=== PATIENT | male | born 1975 | race Caucasian/White ===

== ENCOUNTER 2017-10-15 17:49 | Inpatient (IN) | payer OTHER ==
[~2017-10-15] VITALS: Ht 182.9 cm; Wt 49.4 kg
[~2017-10-15 17:49] MED LIST: ANTIBIOTIC O500 U/GM TP; AUGMENTIN 875875 MG PO; BACTRIM DS 8001 TA1 PO; KEFLEX500 M1 PO; KEFLEX500 MG PO; KETOCONAZOLE2% TP; MOTRIN800 MG PO; NAPROSYN500 MG PO; NKHM; NORCO 5-325 TA1 EACH PO; VICODIN 5/500 505 MG PO; VOLTAREN50 M1 PO; ZOFRAN4 MG PO
[2017-10-15 17:51] VITALS: BP 136/94
[2017-10-15 18:16] VITALS: BP 143/102
[2017-10-15 18:17] LABS: BASO % 0.6 % (0.0-1.0); EOS # 0.1 10*3/uL (0.0-0.4); EOS % 1.1 % (1.0-4.0); HEMOGLOBIN 13.4 g/dl (14.0-18.0); LYMPH % 46.2 % (27.0-41.0); MEAN CELL VOLUME 103.8 fl (80.0-94.0); MEAN CORPUSCULAR HGB 33.9 pg (27.0-31.0); MEAN CORPUSCULAR HGB CONC 32.7 g/dl (33.0-37.0); MEAN PLATELET VOLUME 9.3 fl (9.6-12.3); MONO # 0.6 10*3/uL (0.1-1.0); MONO % 9.4 % (3.0-9.0); NEUT # 2.8 10*3/uL (2.3-7.9); NEUT % 42.4 % (47.0-73.0); PLATELET COUNT AUTOMATED 233 10*3/uL (130-400); RED BLOOD COUNT 3.95 10*6/uL (4.50-5.90); RED CELL DISTRI WIDTH 12.7 % (0-14.5); WHITE BLOOD COUNT 6.5 10*3/uL (4.8-10.8)
[2017-10-15 18:27] LABS: ACT PARTIAL THROMBO TIME 25.2 SECONDS (20.8-31.5); INTERNATIONAL NORM RATIO 0.9 (2.0-3.5)
[2017-10-15 18:33] LABS: ALBUMIN 4.9 gm/dl (3.1-4.5); ALKALINE PHOSPHATASE 81 U/L (45-117); BUN 9 mg/dl (7-24); CHLORIDE 101 mmol/L (98-107); CREATININE 0.64 mg/dL (0.70-1.30); SGOT/AST 297 IU/L (3-35); SGPT/ALT 211 U/L (12-78); SODIUM 140 mmol/L (136-145); TOTAL PROTEIN 8.8 gm/dL (6.4-8.2)
[2017-10-15 18:34] LABS: TROPONIN I < 0.015 ng/ml (<0.045)
[2017-10-15 19:02] VITALS: BP 128/97
[2017-10-15 20:20] VITALS: BP 136/96
[2017-10-15 20:55] VITALS: BP 150/93
[2017-10-15 21:14] VITALS: BP 131/88
[2017-10-15 22:14] LABS: BILIRUBIN NEGATIVE (NEGATIVE); BLOOD NEGATIVE (NEGATIVE); CLARITY CLEAR (CLEAR); COLOR YELLOW (YELLOW); GLUCOSE NEGATIVE (NEGATIVE); KETONE NEGATIVE (NEGATIVE); LEUKO ESTERASE NEGATIVE (NEGATIVE); NITRITE NEGATIVE (NEGATIVE); PH 5.5 (5.0-9.0); SPECIFIC GRAVITY 1.025 (1.005-1.030); UROBILINOGEN 0.2 E.U./dl (0.2-1.0)
[2017-10-15 22:24] LABS: RBC 0-2 rbc/hpf (0-2); URINE AMPHETAMINES < 1000 (1000ng/ml); URINE BARBITURATES < 200 (200ng/ml); URINE BENZODIAZEPINES < 200 (200ng/ml); URINE CANNABINOIDS (THC) < 50 (50ng/ml); URINE COCAINE < 300 (300ng/ml); URINE METHADONE < 300 (300ng/ml); URINE OPIATES < 300 (300ng/ml); WBC 0-2 wbc/hpf (0-5)
[2017-10-15 22:25] LABS: URINE PHENCYCLIDINE < 25 (25ng/ml)
[2017-10-16] VITALS: BP 146/89
[2017-10-16 04:00] VITALS: BP 142/85
[2017-10-16 05:16] LABS: BUN 9 mg/dl (7-24); CHLORIDE 102 mmol/L (98-107); CHOLESTEROL 191 mg/dL (<200); CREATININE 0.48 mg/dL (0.70-1.30); HDL CHOLESTEROL 111 mg/dl (40-60); LDL CHOLESTEROL 62 mg/dL (9-159); POTASSIUM 3.5 mmol/L (3.5-5.1); SODIUM 139 mmol/L (136-145); TRIGLYCERIDES 89 mg/dl (<150); VLDL CHOLESTEROL 18 mg/dL (6-40)
[2017-10-16 06:29] LABS: INTERNATIONAL NORM RATIO 0.9 (2.0-3.5)
[2017-10-16 07:14] LABS: BASO % 0.4 % (0.0-1.0); EOS # 0.1 10*3/uL (0.0-0.4); EOS % 1.3 % (1.0-4.0); HEMOGLOBIN 11.5 g/dl (14.0-18.0); LYMPH # 1.8 10*3/uL (1.3-4.4); LYMPH % 26.2 % (27.0-41.0); MEAN CORPUSCULAR HGB 34.4 pg (27.0-31.0); MEAN CORPUSCULAR HGB CONC 33.4 g/dl (33.0-37.0); MONO # 0.7 10*3/uL (0.1-1.0); MONO % 9.7 % (3.0-9.0); NEUT # 4.2 10*3/uL (2.3-7.9); NEUT % 62.1 % (47.0-73.0); PLATELET COUNT AUTOMATED 224 10*3/uL (130-400); RED BLOOD COUNT 3.34 10*6/uL (4.50-5.90); RED CELL DISTRI WIDTH 12.8 % (0-14.5); WHITE BLOOD COUNT 6.7 10*3/uL (4.8-10.8)
[2017-10-16 07:17] LABS: HEMATOCRIT 34.4 % (42.0-52.0)
[2017-10-16 08:00] VITALS: BP 151/94
[2017-10-16] MEDS ORDERED: VITAMIN D-32000 UNI1 PO (09:51)
== END 2017-10-16 10:26 | disposition home or self-care (01) | DRG 605 ==
LOC: ED 17:49 → EDHOLD 20:03 → ICCU 20:03
PROVIDERS: Internal Medicine; Student in an Organized Health Care Education/Training Program
DX: S20.219A Contusion of unspecified front wall of thorax, initial encounter (principal); E83.41 Hypermagnesemia; F10.229 Alcohol dependence with intoxication, unspecified; D53.9 Nutritional anemia, unspecified; Y90.8 Blood alcohol level of 240 mg/100 ml or more; S00.81XA Abrasion of other part of head, initial encounter; R03.0 Elevated blood-pressure reading, without diagnosis of hypertension; R79.89 Other specified abnormal findings of blood chemistry; Z82.49 Family history of ischemic heart disease and other diseases of the circulatory system; Z82.3 Family history of stroke; V19.9XXA Pedal cyclist (driver) (passenger) injured in unspecified traffic accident, initial encounter; Y93.I9 Activity, other involving external motion; Y92.89 Other specified places as the place of occurrence of the external cause; Y99.8 Other external cause status; Z72.0 Tobacco use

== ENCOUNTER 2018-08-06 12:00 | Emergency (ER) | payer OTHER ==
[~2018-08-06] VITALS: Ht 182.8 cm; Wt 61.2 kg
[~2018-08-06 12:00] MED LIST changes: +VITAMIN D-32000 UNI1 PO
[2018-08-06] MEDS ORDERED: NORCO 5-325 TA1 EACH PO (13:36)
== END 2018-08-06 13:55 | disposition home or self-care (01) ==
LOC: ED 12:00
DX: S42.035A Nondisplaced fracture of lateral end of left clavicle, initial encounter for closed fracture (principal); F17.200 Nicotine dependence, unspecified, uncomplicated; W00.0XXA Fall on same level due to ice and snow, initial encounter; Y93.89 Activity, other specified; Y92.89 Other specified places as the place of occurrence of the external cause; Y99.8 Other external cause status

== ENCOUNTER 2020-04-03 18:45 | Emergency (ER) | payer OTHER ==
[~2020-04-03] VITALS: Wt 58.5 kg
[~2020-04-03 18:45] MED LIST changes: +FLONASE ALLERG9.9 ML NAS; +SEPTDS PO
== END 2020-04-03 21:08 | disposition home or self-care (01) ==
LOC: ED 18:45
DX: S06.0X9A Concussion with loss of consciousness of unspecified duration, initial encounter (principal); S01.81XA Laceration without foreign body of other part of head, initial encounter; F17.200 Nicotine dependence, unspecified, uncomplicated; X58.XXXA Exposure to other specified factors, initial encounter; Y93.89 Activity, other specified; Y92.89 Other specified places as the place of occurrence of the external cause; Y99.8 Other external cause status

== ENCOUNTER 2020-05-05 13:00 | Emergency (ER) | payer OTHER ==
[~2020-05-05] VITALS: Wt 43.1 kg
[2020-05-05 14:19] LABS: BASO % 0.7 % (0.0-1.0); EOS % 0.3 % (1.0-4.0); HEMATOCRIT 30.1 % (42.0-52.0); LYMPH # 1.5 10*3/uL (1.3-4.4); LYMPH % 25.8 % (27.0-41.0); MEAN CELL VOLUME 97.4 fl (80.0-94.0); MEAN CORPUSCULAR HGB 30.7 pg (27.0-31.0); MEAN CORPUSCULAR HGB CONC 31.6 g/dl (33.0-37.0); MEAN PLATELET VOLUME 9.2 fl (9.6-12.3); MONO # 0.4 10*3/uL (0.1-1.0); NEUT # 3.9 10*3/uL (2.3-7.9); NEUT % 65.9 % (47.0-73.0); NUCLEATED RED BLOOD CELL 0.1 10*3/uL (0.0-0.0); NUCLEATED RED BLOOD CELL 0.8 % (0.0-0.0); PLATELET COUNT AUTOMATED 717 10*3/uL (130-400); RED BLOOD COUNT 3.09 10*6/uL (4.50-5.90); RED CELL DISTRI WIDTH 24.5 % (0-14.5)
[2020-05-05 14:34] LABS: ALBUMIN 3.8 gm/dl (3.1-4.5); ALKALINE PHOSPHATASE 98 U/L (45-117); BUN 30 mg/dl (7-24); CHLORIDE 90 mmol/L (98-107); CREATININE 1.08 mg/dL (0.70-1.30); POTASSIUM 2.6 mmol/L (3.5-5.1); SGOT/AST 102 IU/L (3-35); SGPT/ALT 56 U/L (12-78); SODIUM 137 mmol/L (136-145); TOTAL PROTEIN 8.7 gm/dL (6.4-8.2)
[2020-05-05 14:50] LABS: ETHYL ALCOHOL < 3.0 mg/dl (<3)
[2020-05-06 07:55] LABS: BILIRUBIN 3+ (Negative); BLOOD Trace-Intact (Negative); CLARITY Turbid (Clear); COLOR Orange (Yellow); GLUCOSE Negative (Negative); KETONE Trace (Negative); LEUKO ESTERASE 1+ (Negative); NITRITE Positive (Negative); SPECIFIC GRAVITY 1.025 (1.001-1.030)
[2020-05-06 08:15] LABS: BACTERIA 2+
[2020-05-06] MEDS ORDERED: CIPRO500 MG PO (08:59)
== END 2020-05-06 09:21 | disposition home or self-care (01) ==
LOC: ED 13:00
PROVIDERS: Emergency Medicine
DX: N39.0 Urinary tract infection, site not specified (principal); R41.0 Disorientation, unspecified; F17.200 Nicotine dependence, unspecified, uncomplicated; Z98.890 Other specified postprocedural states

== ENCOUNTER 2020-05-08 18:07 | Inpatient (IN) | payer OTHER ==
[~2020-05-08] VITALS: Ht 167.6 cm; Wt 32.8 kg
[~2020-05-08 18:07] MED LIST changes: +CIPRO500 MG PO
[2020-05-08 18:26] VITALS: BP 115/86
[2020-05-08 19:35] LABS: BASO % 0.6 % (0.0-1.0); EOS # 0.1 10*3/uL (0.0-0.4); HEMATOCRIT 27.8 % (42.0-52.0); LYMPH # 1.2 10*3/uL (1.3-4.4); LYMPH % 23.4 % (27.0-41.0); MEAN CELL VOLUME 101.1 fl (80.0-94.0); MEAN CORPUSCULAR HGB 30.9 pg (27.0-31.0); MEAN CORPUSCULAR HGB CONC 30.6 g/dl (33.0-37.0); MEAN PLATELET VOLUME 9.3 fl (9.6-12.3); MONO # 0.5 10*3/uL (0.1-1.0); NEUT # 3.3 10*3/uL (2.3-7.9); NEUT % 65.6 % (47.0-73.0); NUCLEATED RED BLOOD CELL 0.6 % (0.0-0.0); PLATELET COUNT AUTOMATED 560 10*3/uL (130-400); RED BLOOD COUNT 2.75 10*6/uL (4.50-5.90); RED CELL DISTRI WIDTH 25.3 % (0-14.5)
[2020-05-08 19:51] LABS: ALBUMIN 3.1 gm/dl (3.1-4.5); ALKALINE PHOSPHATASE 89 U/L (45-117); BUN 21 mg/dl (7-24); CHLORIDE 106 mmol/L (98-107); CREATININE 0.71 mg/dL (0.70-1.30); LIPASE 23 U/L (73-393); SGOT/AST 119 IU/L (3-35); SGPT/ALT 65 U/L (12-78); SODIUM 148 mmol/L (136-145); TOTAL PROTEIN 7.2 gm/dL (6.4-8.2)
[2020-05-08 20:12] VITALS: BP 122/83
[2020-05-08 21:44] LABS: BILIRUBIN 3+ (Negative); BLOOD Trace-Intact (Negative); CLARITY Cloudy (Clear); COLOR Orange (Yellow); GLUCOSE Negative (Negative); KETONE Trace (Negative); LEUKO ESTERASE 1+ (Negative); NITRITE Positive (Negative); PH 5.5 (4.5-8.0); SPECIFIC GRAVITY 1.025 (1.001-1.030)
[2020-05-08 21:54] VITALS: BP 115/82
[2020-05-08 21:58] LABS: BACTERIA TRACE; RBC 0-2 rbc/hpf (0-2)
[2020-05-08 23:38] VITALS: BP 115/69
[2020-05-09] VITALS (10 sets, daily range): BP systolic 110–135; BP diastolic 67–98
[2020-05-09 05:30] LABS: ACT PARTIAL THROMBO TIME 27.9 SECONDS (20.0-32.1); INTERNATIONAL NORM RATIO 1.2 (2.0-3.5)
[2020-05-09 05:35] LABS: ALKALINE PHOSPHATASE 85 U/L (45-117); BUN 23 mg/dl (7-24); CHLORIDE 106 mmol/L (98-107); CHOLESTEROL 143 mg/dL (<200); CREATININE 0.59 mg/dL (0.70-1.30); FREE T4 1.33 ng/dl (0.76-1.46); HDL CHOLESTEROL 65 mg/dl (40-60); LDL CHOLESTEROL 59 mg/dL (9-159); POTASSIUM 2.9 mmol/L (3.5-5.1); SGOT/AST 112 IU/L (3-35); SGPT/ALT 61 U/L (12-78); SODIUM 147 mmol/L (136-145); TOTAL PROTEIN 7.1 gm/dL (6.4-8.2); TRIGLYCERIDES 95 mg/dl (<150); VLDL CHOLESTEROL 19 mg/dL (6-40)
[2020-05-09 05:56] LABS: BASO % 0.4 % (0.0-1.0); EOS % 0.4 % (1.0-4.0); HEMATOCRIT 26.2 % (42.0-52.0); LYMPH # 1.2 10*3/uL (1.3-4.4); MEAN CELL VOLUME 101.6 fl (80.0-94.0); MEAN CORPUSCULAR HGB 31.4 pg (27.0-31.0); MEAN CORPUSCULAR HGB CONC 30.9 g/dl (33.0-37.0); MEAN PLATELET VOLUME 9.7 fl (9.6-12.3); MONO # 0.4 10*3/uL (0.1-1.0); MONO % 6.6 % (3.0-9.0); NEUT # 3.7 10*3/uL (2.3-7.9); NUCLEATED RED BLOOD CELL 0.6 % (0.0-0.0); PLATELET COUNT AUTOMATED 514 10*3/uL (130-400); RED BLOOD COUNT 2.58 10*6/uL (4.50-5.90); RED CELL DISTRI WIDTH 25.1 % (0-14.5); WHITE BLOOD COUNT 5.3 10*3/uL (4.8-10.8)
[2020-05-09 10:23] LABS: ABG BASE EXCESS 9.4 mmol/L (-2.0-2.0); ARTERIAL BLOOD GAS PH 7.494 (7.35-7.45)
[2020-05-09 15:49] LABS: URINE AMPHETAMINES < 1000 (1000ng/ml); URINE BARBITURATES < 200 (200ng/ml); URINE BENZODIAZEPINES < 200 (200ng/ml); URINE CANNABINOIDS (THC) > 50 (50ng/ml); URINE COCAINE < 300 (300ng/ml); URINE METHADONE < 300 (300ng/ml); URINE OPIATES < 300 (300ng/ml)
[2020-05-09 15:52] LABS: URINE PHENCYCLIDINE < 25 (25ng/ml)
[2020-05-10] VITALS: BP 119/98
[2020-05-10 07:33] LABS: BASO % 0.3 % (0.0-1.0); EOS # 0.1 10*3/uL (0.0-0.4); EOS % 0.7 % (1.0-4.0); HEMATOCRIT 27.3 % (42.0-52.0); LYMPH # 1.1 10*3/uL (1.3-4.4); LYMPH % 15.5 % (27.0-41.0); MEAN CELL VOLUME 100.4 fl (80.0-94.0); MEAN CORPUSCULAR HGB 31.3 pg (27.0-31.0); MEAN CORPUSCULAR HGB CONC 31.1 g/dl (33.0-37.0); MEAN PLATELET VOLUME 9.6 fl (9.6-12.3); MONO # 0.5 10*3/uL (0.1-1.0); MONO % 6.6 % (3.0-9.0); NEUT # 5.2 10*3/uL (2.3-7.9); NEUT % 76.5 % (47.0-73.0); NUCLEATED RED BLOOD CELL 0.3 % (0.0-0.0); PLATELET COUNT AUTOMATED 412 10*3/uL (130-400); RED BLOOD COUNT 2.72 10*6/uL (4.50-5.90); RED CELL DISTRI WIDTH 25.2 % (0-14.5); WHITE BLOOD COUNT 6.8 10*3/uL (4.8-10.8)
[2020-05-10 07:48] LABS: ALBUMIN 2.7 gm/dl (3.1-4.5); ALKALINE PHOSPHATASE 81 U/L (45-117); BUN 21 mg/dl (7-24); CHLORIDE 108 mmol/L (98-107); CREATININE 0.58 mg/dL (0.70-1.30); POTASSIUM 3.3 mmol/L (3.5-5.1); SGOT/AST 93 IU/L (3-35); SGPT/ALT 56 U/L (12-78); SODIUM 148 mmol/L (136-145); TOTAL PROTEIN 6.6 gm/dL (6.4-8.2)
[2020-05-10 08:00] VITALS: BP 124/86; BP 140/84
[2020-05-10 12:00] VITALS: BP 126/90
[2020-05-10 16:00] VITALS: BP 142/98
[2020-05-10 20:00] VITALS: BP 143/98
[2020-05-11] VITALS: BP 141/96
[2020-05-11 06:50] LABS: BASO % 0.3 % (0.0-1.0); EOS # 0.1 10*3/uL (0.0-0.4); EOS % 0.7 % (1.0-4.0); HEMATOCRIT 27.4 % (42.0-52.0); LYMPH # 1.2 10*3/uL (1.3-4.4); LYMPH % 12.8 % (27.0-41.0); MEAN CELL VOLUME 102.6 fl (80.0-94.0); MEAN CORPUSCULAR HGB 31.1 pg (27.0-31.0); MEAN CORPUSCULAR HGB CONC 30.3 g/dl (33.0-37.0); MEAN PLATELET VOLUME 9.7 fl (9.6-12.3); MONO # 0.5 10*3/uL (0.1-1.0); MONO % 5.3 % (3.0-9.0); NEUT # 7.8 10*3/uL (2.3-7.9); NEUT % 80.4 % (47.0-73.0); NUCLEATED RED BLOOD CELL 0.4 % (0.0-0.0); PLATELET COUNT AUTOMATED 412 10*3/uL (130-400); RED BLOOD COUNT 2.67 10*6/uL (4.50-5.90); RED CELL DISTRI WIDTH 25.9 % (0-14.5); WHITE BLOOD COUNT 9.6 10*3/uL (4.8-10.8)
[2020-05-11 07:22] LABS: ALBUMIN 3.1 gm/dl (3.1-4.5); BUN 18 mg/dl (7-24); CHLORIDE 112 mmol/L (98-107); CREATININE 0.73 mg/dL (0.70-1.30); POTASSIUM 3.6 mmol/L (3.5-5.1); SGOT/AST 83 IU/L (3-35); SGPT/ALT 55 U/L (12-78); SODIUM 150 mmol/L (136-145)
[2020-05-11 07:25] LABS: ALKALINE PHOSPHATASE 92 U/L (45-117); TOTAL PROTEIN 7.3 gm/dL (6.4-8.2)
[2020-05-11 17:20] VITALS: BP 132/88
[2020-05-11 20:00] VITALS: BP 127/94
[2020-05-12] VITALS: BP 116/80
[2020-05-12 06:41] LABS: BUN 13 mg/dl (7-24); CHLORIDE 113 mmol/L (98-107); CREATININE 0.65 mg/dL (0.70-1.30); POTASSIUM 3.4 mmol/L (3.5-5.1); SODIUM 150 mmol/L (136-145)
[2020-05-12 08:00] VITALS: BP 141/99
[2020-05-12 08:11] LABS: HEP B CORE AB, IGM Negative (Negative); HEPATITIS B SURFACE AG Negative (Negative); HEPATITIS C VIRUS ANTIBODY <0.1 s/co (0.0-0.9)
[2020-05-12 16:14] LABS: BUN 13 mg/dl (7-24); CHLORIDE 113 mmol/L (98-107); CREATININE 0.54 mg/dL (0.70-1.30); SODIUM 146 mmol/L (136-145)
[2020-05-13 06:32] LABS: BUN 11 mg/dl (7-24); CHLORIDE 112 mmol/L (98-107); CREATININE 0.57 mg/dL (0.70-1.30); POTASSIUM 3.1 mmol/L (3.5-5.1); SODIUM 147 mmol/L (136-145)
[2020-05-13 08:00] VITALS: BP 132/96
[2020-05-13 12:18] VITALS: BP 136/95
[2020-05-13 14:37] VITALS: BP 134/98
[2020-05-13 14:52] VITALS: BP 133/98
[2020-05-13 15:07] VITALS: BP 134/98
[2020-05-13 20:00] VITALS: BP 132/89
[2020-05-14] VITALS: BP 156/76
[2020-05-14 04:00] VITALS: BP 144/80
[2020-05-14 06:44] LABS: BUN 13 mg/dl (7-24); CHLORIDE 116 mmol/L (98-107); CREATININE 0.66 mg/dL (0.70-1.30); POTASSIUM 3.9 mmol/L (3.5-5.1); SODIUM 151 mmol/L (136-145)
[2020-05-14 08:00] VITALS: BP 141/98
[2020-05-14 12:00] VITALS: BP 167/90
[2020-05-14 16:00] VITALS: BP 178/99
[2020-05-14 20:00] VITALS: BP 138/98
[2020-05-15] VITALS (7 sets, daily range): BP systolic 101–140; BP diastolic 56–107
[2020-05-15 07:53] LABS: BASO % 0.2 % (0.0-1.0); EOS % 0.3 % (1.0-4.0); HEMATOCRIT 30.9 % (42.0-52.0); LYMPH # 1.5 10*3/uL (1.3-4.4); LYMPH % 10.3 % (27.0-41.0); MEAN CELL VOLUME 105.1 fl (80.0-94.0); MEAN CORPUSCULAR HGB CONC 29.4 g/dl (33.0-37.0); MEAN PLATELET VOLUME 11.1 fl (9.6-12.3); MONO # 1.1 10*3/uL (0.1-1.0); MONO % 7.3 % (3.0-9.0); NEUT # 11.8 10*3/uL (2.3-7.9); NEUT % 81.5 % (47.0-73.0); PLATELET COUNT AUTOMATED 253 10*3/uL (130-400); RED BLOOD COUNT 2.94 10*6/uL (4.50-5.90); RED CELL DISTRI WIDTH 26.7 % (0-14.5); WHITE BLOOD COUNT 14.5 10*3/uL (4.8-10.8)
[2020-05-15 08:11] LABS: BUN 19 mg/dl (7-24); CHLORIDE 119 mmol/L (98-107); CREATININE 0.82 mg/dL (0.70-1.30); POTASSIUM 3.6 mmol/L (3.5-5.1); SODIUM 149 mmol/L (136-145)
[2020-05-16 07:09] LABS: BASO # 0.1 10*3/uL (0.0-0.1); BASO % 0.3 % (0.0-1.0); EOS # 0.1 10*3/uL (0.0-0.4); EOS % 0.5 % (1.0-4.0); HEMATOCRIT 27.6 % (42.0-52.0); LYMPH # 2.8 10*3/uL (1.3-4.4); LYMPH % 13.9 % (27.0-41.0); MEAN CELL VOLUME 102.2 fl (80.0-94.0); MEAN CORPUSCULAR HGB 31.5 pg (27.0-31.0); MEAN CORPUSCULAR HGB CONC 30.8 g/dl (33.0-37.0); MEAN PLATELET VOLUME 11.7 fl (9.6-12.3); MONO # 1.3 10*3/uL (0.1-1.0); MONO % 6.5 % (3.0-9.0); NEUT # 15.5 10*3/uL (2.3-7.9); NEUT % 78.2 % (47.0-73.0); PLATELET COUNT AUTOMATED 251 10*3/uL (130-400); RED CELL DISTRI WIDTH 26.4 % (0-14.5); WHITE BLOOD COUNT 19.8 10*3/uL (4.8-10.8)
[2020-05-16 07:40] LABS: ALBUMIN 2.6 gm/dl (3.1-4.5); BUN 23 mg/dl (7-24); CHLORIDE 116 mmol/L (98-107); CREATININE 0.89 mg/dL (0.70-1.30); POTASSIUM 2.9 mmol/L (3.5-5.1); SGOT/AST 48 IU/L (3-35); SGPT/ALT 25 U/L (12-78); SODIUM 150 mmol/L (136-145)
[2020-05-16 07:43] LABS: ALKALINE PHOSPHATASE 117 U/L (45-117); TOTAL PROTEIN 7.1 gm/dL (6.4-8.2)
[2020-05-16 08:00] VITALS: BP 111/56
[2020-05-16 12:00] VITALS: BP 152/92
[2020-05-16 16:00] VITALS: BP 163/108
[2020-05-16 20:00] VITALS: BP 133/93
[2020-05-17] VITALS: BP 152/106
[2020-05-17 05:47] VITALS: BP 134/82
[2020-05-17 07:03] LABS: ALBUMIN 2.4 gm/dl (3.1-4.5); ALKALINE PHOSPHATASE 120 U/L (45-117); BUN 26 mg/dl (7-24); CHLORIDE 115 mmol/L (98-107); CREATININE 1.02 mg/dL (0.70-1.30); POTASSIUM 3.4 mmol/L (3.5-5.1); SGOT/AST 66 IU/L (3-35); SGPT/ALT 24 U/L (12-78); SODIUM 150 mmol/L (136-145); TOTAL PROTEIN 7.3 gm/dL (6.4-8.2)
[2020-05-17 08:00] VITALS: BP 158/108
[2020-05-17 12:00] VITALS: BP 143/98
[2020-05-17 16:00] VITALS: BP 135/89
[2020-05-17 16:53] LABS: BILIRUBIN Negative (Negative); BLOOD 1+ (Negative); CLARITY Turbid (Clear); COLOR Dark Yellow (Yellow); GLUCOSE Negative (Negative); KETONE Negative (Negative); LEUKO ESTERASE Trace (Negative); NITRITE Negative (Negative); SPECIFIC GRAVITY 1.025 (1.001-1.030)
[2020-05-17 16:57] LABS: PH >= 9.0 (4.5-8.0)
[2020-05-17 16:59] LABS: BACTERIA TRACE; EPITHELIAL CELLS 0-2; RBC 0-2 rbc/hpf (0-2)
[2020-05-17 20:00] VITALS: BP 119/102; BP 120/98
[2020-05-18] VITALS: BP 127/96
[2020-05-18 06:31] LABS: BASO % 0.3 % (0.0-1.0); EOS # 0.2 10*3/uL (0.0-0.4); EOS % 1.2 % (1.0-4.0); HEMATOCRIT 25.3 % (42.0-52.0); LYMPH # 2.2 10*3/uL (1.3-4.4); LYMPH % 15.9 % (27.0-41.0); MEAN CELL VOLUME 100.8 fl (80.0-94.0); MEAN CORPUSCULAR HGB 31.5 pg (27.0-31.0); MEAN CORPUSCULAR HGB CONC 31.2 g/dl (33.0-37.0); MEAN PLATELET VOLUME 11.5 fl (9.6-12.3); MONO # 0.6 10*3/uL (0.1-1.0); MONO % 4.1 % (3.0-9.0); NEUT # 10.8 10*3/uL (2.3-7.9); NEUT % 77.6 % (47.0-73.0); PLATELET COUNT AUTOMATED 267 10*3/uL (130-400); RED BLOOD COUNT 2.51 10*6/uL (4.50-5.90); RED CELL DISTRI WIDTH 25.5 % (0-14.5); WHITE BLOOD COUNT 13.9 10*3/uL (4.8-10.8)
[2020-05-18 06:47] LABS: CHLORIDE 105 mmol/L (98-107); POTASSIUM 3.4 mmol/L (3.5-5.1); SODIUM 139 mmol/L (136-145)
[2020-05-18 06:56] LABS: ALBUMIN 2.3 gm/dl (3.1-4.5); ALKALINE PHOSPHATASE 117 U/L (45-117); BUN 28 mg/dl (7-24); CREATININE 0.87 mg/dL (0.70-1.30); SGOT/AST 95 IU/L (3-35); SGPT/ALT 29 U/L (12-78); TOTAL PROTEIN 6.9 gm/dL (6.4-8.2)
[2020-05-18 08:00] VITALS: BP 124/99
[2020-05-18 12:00] VITALS: BP 146/90
[2020-05-18 16:00] VITALS: BP 157/99
[2020-05-18 20:00] VITALS: BP 139/98
[2020-05-18 23:38] VITALS: BP 116/93
[2020-05-19 08:00] VITALS: BP 124/87
[2020-05-19 12:00] VITALS: BP 150/68
[2020-05-19 16:00] VITALS: BP 176/98
[2020-05-19 20:00] VITALS: BP 149/89
[2020-05-20] VITALS: BP 139/65
[2020-05-20 08:00] VITALS: BP 137/94
[2020-05-20 12:00] VITALS: BP 124/77
[2020-05-20] MEDS ORDERED: ZYPREXA2.5 MG PO (15:51)
[2020-05-20] MEDS ORDERED: NATURE'S BLEND F1 MG PEG (15:51)
[2020-05-20] MEDS ORDERED: VITAMIN B-1100 M1 PEG (15:51)
[2020-05-20] MEDS ORDERED: Vitamin D (1,000 UNI PEG (15:51)
[2020-05-20] MEDS ORDERED: THERA TABLET400 MCG PO (15:51)
[2020-05-20] MEDS ORDERED: ZOFRAN 4 MG ED2 TAB PO (15:51)
[2020-05-20 16:02] VITALS: BP 132/82; BP 85/38
[2020-05-20 20:05] VITALS: BP 124/32
[2020-05-21] VITALS: BP 132/89
[2020-05-21 06:20] LABS: BASO % 0.2 % (0.0-1.0); EOS # 0.1 10*3/uL (0.0-0.4); EOS % 0.3 % (1.0-4.0); HEMATOCRIT 22.2 % (42.0-52.0); LYMPH # 2.2 10*3/uL (1.3-4.4); LYMPH % 11.7 % (27.0-41.0); MEAN CELL VOLUME 96.1 fl (80.0-94.0); MEAN CORPUSCULAR HGB 30.7 pg (27.0-31.0); MEAN PLATELET VOLUME 11.1 fl (9.6-12.3); MONO # 0.8 10*3/uL (0.1-1.0); MONO % 4.3 % (3.0-9.0); NEUT # 15.3 10*3/uL (2.3-7.9); NEUT % 82.8 % (47.0-73.0); PLATELET COUNT AUTOMATED 454 10*3/uL (130-400); RED BLOOD COUNT 2.31 10*6/uL (4.50-5.90); WHITE BLOOD COUNT 18.4 10*3/uL (4.8-10.8)
[2020-05-21 06:50] LABS: ALBUMIN 1.9 gm/dl (3.1-4.5); ALKALINE PHOSPHATASE 136 U/L (45-117); BUN 19 mg/dl (7-24); CHLORIDE 99 mmol/L (98-107); POTASSIUM 3.5 mmol/L (3.5-5.1); SODIUM 134 mmol/L (136-145)
[2020-05-21 06:53] LABS: CREATININE 0.47 mg/dL (0.70-1.30); SGOT/AST 56 IU/L (3-35); SGPT/ALT 33 U/L (12-78); TOTAL PROTEIN 6.7 gm/dL (6.4-8.2)
[2020-05-21 08:00] VITALS: BP 120/86
== END 2020-05-21 12:28 | DRG 70 ==
LOC: ED 18:07 → EDHOLD 22:33 → 5E 22:33 → EDHOLD 22:34 → ED 22:34 → EDHOLD 23:24 → 5E 05-09 07:31 → EDHOLD 05-09 07:31 → ED 05-09 13:04 → 5E 05-09 15:28
PROVIDERS: Emergency Medicine; Family Medicine; Internal Medicine; Nurse Practitioner; Physician Assistant; Registered Nurse; Social Worker Clinical; ADMIT Internal Medicine; ATTEND Internal Medicine
PROC: 0DH63UZ Insertion of Feeding Device into Stomach, Percutaneous Approach (ICD-10-PCS; principal; 2020-05-13)
DX: G93.41 Metabolic encephalopathy (principal); E43 Unspecified severe protein-calorie malnutrition; N30.01 Acute cystitis with hematuria; E87.0 Hyperosmolality and hypernatremia; F10.231 Alcohol dependence with withdrawal delirium; Z68.1 Body mass index [BMI] 19.9 or less, adult; R64 Cachexia; R73.9 Hyperglycemia, unspecified; D53.9 Nutritional anemia, unspecified; R00.1 Bradycardia, unspecified; D47.3 Essential (hemorrhagic) thrombocythemia; D72.810 Lymphocytopenia; E87.6 Hypokalemia; F12.20 Cannabis dependence, uncomplicated; F39 Unspecified mood [affective] disorder; R91.1 Solitary pulmonary nodule; D18.03 Hemangioma of intra-abdominal structures; T36.8X6A Underdosing of other systemic antibiotics, initial encounter; Z20.828 Contact with and (suspected) exposure to other viral communicable diseases; R74.01 Elevation of levels of liver transaminase levels; Z86.73 Personal history of transient ischemic attack (TIA), and cerebral infarction without residual deficits; Z72.0 Tobacco use; Y92.89 Other specified places as the place of occurrence of the external cause; Z82.49 Family history of ischemic heart disease and other diseases of the circulatory system; Z82.3 Family history of stroke

== ENCOUNTER 2021-01-21 19:08 | Inpatient (IN) | payer OTHER ==
[~2021-01-21] VITALS: Ht 182.8 cm; Wt 35.4 kg
[~2021-01-21 19:08] MED LIST changes: +NATURE'S BLEND F1 MG PEG; +THERA TABLET400 MCG PO; +VITAMIN B-1100 M1 PEG; +Vitamin D (1,000 UNI PEG; +ZOFRAN 4 MG ED2 TAB PO; +ZYPREXA2.5 MG PO
[2021-01-21 19:18] VITALS: BP 145/113
[2021-01-21 20:08] LABS: BASO % 0.2 % (0.0-1.0); EOS % 0.2 % (1.0-4.0); HEMATOCRIT 42.5 % (42.0-52.0); LYMPH # 1.6 10*3/uL (1.3-4.4); LYMPH % 32.1 % (27.0-41.0); MEAN CELL VOLUME 96.4 fl (80.0-94.0); MEAN CORPUSCULAR HGB 30.4 pg (27.0-31.0); MEAN CORPUSCULAR HGB CONC 31.5 g/dl (33.0-37.0); MEAN PLATELET VOLUME 10.7 fl (9.6-12.3); MONO # 0.3 10*3/uL (0.1-1.0); MONO % 6.3 % (3.0-9.0); NEUT # 3.1 10*3/uL (2.3-7.9); PLATELET COUNT AUTOMATED 281 10*3/uL (130-400); RED BLOOD COUNT 4.41 10*6/uL (4.50-5.90); RED CELL DISTRI WIDTH 12.7 % (0-14.5); WHITE BLOOD COUNT 5.1 10*3/uL (4.8-10.8)
[2021-01-21 20:25] LABS: ALBUMIN 3.7 gm/dl (3.1-4.5); ALKALINE PHOSPHATASE 83 U/L (45-117); BUN 38 mg/dl (7-24); CHLORIDE 110 mmol/L (98-107); CPK 74 U/L (39-308); CREATININE 0.85 mg/dL (0.70-1.30); POTASSIUM 4.2 mmol/L (3.5-5.1); SGOT/AST 19 IU/L (3-35); SGPT/ALT 19 U/L (12-78); SODIUM 139 mmol/L (136-145)
[2021-01-22 01:20] VITALS: BP 134/94; BP 134/96
[2021-01-22 06:56] LABS: BASO % 0.2 % (0.0-1.0); EOS % 0.7 % (1.0-4.0); HEMATOCRIT 40.6 % (42.0-52.0); LYMPH % 32.3 % (27.0-41.0); MEAN CORPUSCULAR HGB 30.3 pg (27.0-31.0); MEAN CORPUSCULAR HGB CONC 31.5 g/dl (33.0-37.0); MONO # 0.5 10*3/uL (0.1-1.0); MONO % 7.4 % (3.0-9.0); NEUT # 3.6 10*3/uL (2.3-7.9); NEUT % 59.2 % (47.0-73.0); PLATELET COUNT AUTOMATED 249 10*3/uL (130-400); RED BLOOD COUNT 4.23 10*6/uL (4.50-5.90); RED CELL DISTRI WIDTH 12.7 % (0-14.5); WHITE BLOOD COUNT 6.1 10*3/uL (4.8-10.8)
[2021-01-22 07:07] LABS: ACT PARTIAL THROMBO TIME 32.6 SECONDS (20.0-32.1); INTERNATIONAL NORM RATIO 1.2 (2.0-3.5)
[2021-01-22 07:24] LABS: ALBUMIN 3.4 gm/dl (3.1-4.5); BUN 30 mg/dl (7-24); CHLORIDE 111 mmol/L (98-107); SODIUM 142 mmol/L (136-145)
[2021-01-22 07:33] LABS: ALKALINE PHOSPHATASE 91 U/L (45-117); CHOLESTEROL 162 mg/dL (<200); CREATININE 0.91 mg/dL (0.70-1.30); FREE T4 1.05 ng/dl (0.76-1.46); LDL CHOLESTEROL 58 mg/dL (9-159); SGOT/AST 19 IU/L (3-35); SGPT/ALT 20 U/L (12-78); TOTAL PROTEIN 6.2 gm/dL (6.4-8.2); TRIGLYCERIDES 122 mg/dl (<150)
[2021-01-22 07:40] LABS: POTASSIUM 3.2 mmol/L (3.5-5.1)
[2021-01-22 08:00] VITALS: BP 107/75
[2021-01-22 12:00] VITALS: BP 111/84
[2021-01-22 16:00] VITALS: BP 99/78
[2021-01-22 20:00] VITALS: BP 107/75
[2021-01-23] VITALS: BP 110/78
[2021-01-23 06:02] LABS: ALBUMIN 2.7 gm/dl (3.1-4.5); ALKALINE PHOSPHATASE 89 U/L (45-117); CHLORIDE 111 mmol/L (98-107); POTASSIUM 3.5 mmol/L (3.5-5.1); SGOT/AST 21 IU/L (3-35); SGPT/ALT 19 U/L (12-78); SODIUM 144 mmol/L (136-145); TOTAL PROTEIN 5.2 gm/dL (6.4-8.2)
[2021-01-23 06:09] LABS: BUN 16 mg/dl (7-24)
[2021-01-23 06:10] LABS: HEMATOCRIT 36.2 % (42.0-52.0); MEAN CELL VOLUME 96.3 fl (80.0-94.0); MEAN CORPUSCULAR HGB 30.3 pg (27.0-31.0); MEAN CORPUSCULAR HGB CONC 31.5 g/dl (33.0-37.0); MEAN PLATELET VOLUME 11.5 fl (9.6-12.3); PLATELET COUNT AUTOMATED 207 10*3/uL (130-400); RED BLOOD COUNT 3.76 10*6/uL (4.50-5.90); WHITE BLOOD COUNT 5.8 10*3/uL (4.8-10.8)
[2021-01-23 06:42] LABS: TOTAL CELLS COUNTED 100 #CELLS
[2021-01-23 06:43] LABS: ACANTHOCYTES FEW; BURR CELLS FEW; PLATELET SUFFICIENCY NORMAL (NORMAL)
[2021-01-23 08:00] VITALS: BP 102/79
[2021-01-23 11:54] LABS: BILIRUBIN Negative (Negative); BLOOD Negative (Negative); CLARITY Clear (Clear); COLOR Yellow (Yellow); GLUCOSE Negative (Negative); KETONE Negative (Negative); LEUKO ESTERASE Negative (Negative); NITRITE Negative (Negative); PH 5.5 (4.5-8.0)
[2021-01-23 12:00] VITALS: BP 95/62
[2021-01-23 12:00] LABS: WBC 0-2 wbc/hpf (0-5)
[2021-01-23 16:00] VITALS: BP 129/80
[2021-01-23 20:00] VITALS: BP 123/78
[2021-01-24] VITALS: BP 114/79
[2021-01-24 06:07] LABS: BUN 13 mg/dl (7-24); CHLORIDE 106 mmol/L (98-107); CREATININE 0.38 mg/dL (0.70-1.30); POTASSIUM 3.7 mmol/L (3.5-5.1); SODIUM 140 mmol/L (136-145)
[2021-01-24 06:14] LABS: MEAN CORPUSCULAR HGB 30.3 pg (27.0-31.0); MEAN CORPUSCULAR HGB CONC 31.9 g/dl (33.0-37.0); MEAN PLATELET VOLUME 11.2 fl (9.6-12.3); PLATELET COUNT AUTOMATED 195 10*3/uL (130-400); RED BLOOD COUNT 3.79 10*6/uL (4.50-5.90); RED CELL DISTRI WIDTH 12.8 % (0-14.5)
[2021-01-24 06:56] LABS: BASOPHILS 3 % (0-1); BURR CELLS FEW; PLATELET SUFFICIENCY NORMAL (NORMAL); TOTAL CELLS COUNTED 100 #CELLS
[2021-01-24 08:00] VITALS: BP 116/65
[2021-01-24 12:00] VITALS: BP 118/66
[2021-01-24 16:00] VITALS: BP 110/68
[2021-01-24 20:00] VITALS: BP 101/56
[2021-01-25] VITALS: BP 103/64
[2021-01-25 06:33] LABS: HEMATOCRIT 34.9 % (42.0-52.0); MEAN CELL VOLUME 96.1 fl (80.0-94.0); MEAN CORPUSCULAR HGB 30.3 pg (27.0-31.0); MEAN CORPUSCULAR HGB CONC 31.5 g/dl (33.0-37.0); MEAN PLATELET VOLUME 11.1 fl (9.6-12.3); PLATELET COUNT AUTOMATED 189 10*3/uL (130-400); RED BLOOD COUNT 3.63 10*6/uL (4.50-5.90); RED CELL DISTRI WIDTH 13.1 % (0-14.5); WHITE BLOOD COUNT 4.9 10*3/uL (4.8-10.8)
[2021-01-25 06:34] LABS: ALBUMIN 2.5 gm/dl (3.1-4.5); BUN 11 mg/dl (7-24); CHLORIDE 106 mmol/L (98-107); POTASSIUM 3.4 mmol/L (3.5-5.1); SGOT/AST 18 IU/L (3-35); SGPT/ALT 20 U/L (12-78); SODIUM 140 mmol/L (136-145); TOTAL PROTEIN 5.3 gm/dL (6.4-8.2)
[2021-01-25 06:39] LABS: ALKALINE PHOSPHATASE 89 U/L (45-117)
[2021-01-25 07:20] LABS: ATYPICAL LYMPHS 2 % (0-0); BASOPHILS 1 % (0-1); PLATELET SUFFICIENCY NORMAL (NORMAL); TOTAL CELLS COUNTED 100 #CELLS
[2021-01-25 08:00] VITALS: BP 136/83
[2021-01-25 12:00] VITALS: BP 119/65
[2021-01-25] MEDS ORDERED: NATURE'S BLEND F1 MG PO (14:52)
[2021-01-25] MEDS ORDERED: Vitamin D (1,000 UNI PO (14:52)
[2021-01-25] MEDS ORDERED: VITAMIN B-1100 M1 PO (14:52)
[2021-01-25 16:00] VITALS: BP 108/72
== END 2021-01-25 17:07 | DRG 559 ==
LOC: ED 19:08 → 4E 22:50 → EDHOLD 22:50 → 4E 01-22 01:29
PROVIDERS: Emergency Medicine; Family Medicine; Hospitalist; Internal Medicine; ADMIT Student in an Organized Health Care Education/Training Program; ATTEND Student in an Organized Health Care Education/Training Program
DX: T84.290A Other mechanical complication of internal fixation device of bones of hand and fingers, initial encounter (principal); G93.41 Metabolic encephalopathy; E43 Unspecified severe protein-calorie malnutrition; Z68.1 Body mass index [BMI] 19.9 or less, adult; R53.81 Other malaise; E86.0 Dehydration; R26.2 Difficulty in walking, not elsewhere classified; R53.1 Weakness; R00.1 Bradycardia, unspecified; D53.9 Nutritional anemia, unspecified; F17.210 Nicotine dependence, cigarettes, uncomplicated; F10.10 Alcohol abuse, uncomplicated; E55.9 Vitamin D deficiency, unspecified; F39 Unspecified mood [affective] disorder; Z20.822 Contact with and (suspected) exposure to COVID-19; Y83.1 Surgical operation with implant of artificial internal device as the cause of abnormal reaction of the patient, or of later complication, without mention of misadventure at the time of the procedure; Y92.89 Other specified places as the place of occurrence of the external cause; Z82.49 Family history of ischemic heart disease and other diseases of the circulatory system; Z82.3 Family history of stroke; Z79.899 Other long term (current) drug therapy

== ENCOUNTER → 2021-02-25 | Day surgery (SDC) | payer OTHER ==
[2021-02-22 14:56] LABS: BUN 18 mg/dl (7-24); CHLORIDE 101 mmol/L (98-107); CREATININE 0.47 mg/dL (0.70-1.30); POTASSIUM 4.1 mmol/L (3.5-5.1); SODIUM 135 mmol/L (136-145)
[~2021-02-25] VITALS: Ht 152.4 cm; Wt 42.2 kg
[~2021-02-25] MED LIST changes: +NATURE'S BLEND F1 MG PO; +VITAMIN B-1100 M1 PO; +Vitamin D (1,000 UNI PO
[2021-02-25 08:15] VITALS: BP 108/83
[2021-02-25 10:41] VITALS: BP 109/70
[2021-02-25 10:55] VITALS: BP 105/72
[2021-02-25 11:09] VITALS: BP 106/71
[2021-02-26 09:07] LABS: ACID FAST SPEC PROCESSING Tissue Grinding (.)
== END | disposition home or self-care (01) ==
LOC: SDC 02-19 14:00
PROVIDERS: ATTEND Orthopaedic Surgery
DX: T84.498A Other mechanical complication of other internal orthopedic devices, implants and grafts, initial encounter (principal); Y83.8 Other surgical procedures as the cause of abnormal reaction of the patient, or of later complication, without mention of misadventure at the time of the procedure; Z20.822 Contact with and (suspected) exposure to COVID-19; Z79.899 Other long term (current) drug therapy

== ENCOUNTER → 2021-03-05 | Outpatient (CLI) | payer MEDICAID | END | disposition home or self-care (01) | LOC: ORTHO 03-04 23:15 | PROVIDERS: ATTEND Orthopaedic Surgery | DX: T84.498A Other mechanical complication of other internal orthopedic devices, implants and grafts, initial encounter (principal) ==